=== PATIENT | male | born 2000 | race Caucasian/White ===

== ENCOUNTER 2021-07-19 13:45 | Emergency (ER) | payer OTHER ==
[~2021-07-19] VITALS: Ht 170.2 cm; Wt 68.0 kg
[2021-07-19 16:58] VITALS: BP 122/76
== END 2021-07-19 16:59 | disposition home or self-care (01) ==
LOC: ER 13:45
DX: U07.1 COVID-19 (principal)
CPT/HCPCS: 71045; 87426; 99284

== ENCOUNTER 2023-09-15 20:39 | Emergency (ER) | payer MEDICAID, OTHER ==
[~2023-09-15] VITALS: Ht 166.4 cm; Wt 71.4 kg
[2023-09-15 20:46] VITALS: TEMP 98.3; O2SAT 99
[2023-09-15 22:00] VITALS: BP 122/74; PULSE 81; RESP 16
[2023-09-15] MEDS: IBUPROFEN 400MG TABLET PO ONE (22:00)
[2023-09-15] MEDS ORDERED: IBUP-2028 MT (22:02)
== END 2023-09-16 01:24 | disposition home or self-care (01) ==
LOC: ER 20:39
DX: M54.9 Dorsalgia, unspecified (principal); M54.2 Cervicalgia; V49.49XA Driver injured in collision with other motor vehicles in traffic accident, initial encounter; Y93.89 Activity, other specified; Y92.89 Other specified places as the place of occurrence of the external cause; Y99.8 Other external cause status
CPT/HCPCS: 99282

== ENCOUNTER 2024-04-06 17:47 | Emergency (ER) | payer MEDICAID, OTHER ==
[~2024-04-06] VITALS: Ht 170.2 cm; Wt 70.0 kg
[~2024-04-06 17:47] MED LIST: IBUP-2028 MT
[2024-04-06 17:51] VITALS: O2SAT 98
[2024-04-06 18:17] LABS: BASOPHILS % 0.5 % (0.0-2.0); EOSINOPHILS % 2.1 % (0.0-5.0); HEMATOCRIT. 44.7 % (42.0-52.0); LYMPHOCYTES % 32.8 % (20.0-50.0); MEAN CORPUSCULAR HEMOGLOBIN 29.9 pg (28.0-32.0); MEAN CORPUSCULAR HGB CONC 33.6 g/dL (31.0-37.0); MEAN CORPUSCULAR VOLUME 88.8 fL (80.0-94.0); MEAN PLATELET VOLUME 8.4 fl (7.4-10.4); MONOCYTES % 5.9 % (2.0-8.0); NEUTROPHILS % 58.7 % (40.0-76.0); PLATELET 272 x1000/uL (130-400); RED BLOOD CELL COUNT 5.04 mill/uL (4.7-6.1); RED CELL DISTRIBUTION WIDTH 12.9 % (11.6-14.6); WHITE BLOOD COUNT 10.7 x1000/uL (4.5-11.0)
[2024-04-06 18:22] LABS: CHLORIDE 107 mEq/L (98-107); POTASSIUM 3.2 mEq/L (3.5-5.1); SODIUM 139 mEq/L (136-145)
[2024-04-06 18:23] LABS: CALCIUM 9.1 mg/dL (8.7-10.4); CARBON DIOXIDE 23 mEq/L (21-32)
[2024-04-06 18:28] LABS: GLUCOSE 134 mg/dL (70-105); PROTHROMBIN TIME 10.8 sec (9.6-11.0); UREA NITROGEN BLOOD 12 mg/dL (9-23)
[2024-04-06 18:30] LABS: ALANINE AMINOTRANSFERASE 32 IU/L (10-49); ALBUMIN 4.7 g/dL (3.2-4.8); ASPARTATE AMINOTRANSFERASE 40 IU/L (<34); BILIRUBIN TOTAL 0.3 mg/dL (0.1-1.0); PROTEIN TOTAL 7.8 g/dL (6.0-8.3)
[2024-04-06 18:36] LABS: BILIRUBIN DIRECT < 0.1 mg/dL (<=3.0)
[2024-04-06] MEDS: MORPHINE SULFATE 4 MG/ML INJ (FOR IV/IM USE) IV ONE (19:55)
[2024-04-06] MEDS: MORPHINE SULFATE 4 MG/ML INJ (FOR IV/IM USE) IV NR (19:56)
[2024-04-06] MEDS: IOHEXOL-300 100 ML BOTTLE ONE (23:11)
[2024-04-07] MEDS: SODIUM CHLORIDE 0.9% 1,000 ML IV ONE (00:15)
[2024-04-07 02:42] VITALS: BP 128/71; PULSE 95; RESP 20; TEMP 36.89184; O2SAT 98
[2024-04-07] MEDS: MORPHINE SULFATE 2 MG/ML INJ (NOT FOR IM USE) IV NR (02:57)
== END 2024-04-07 03:12 | disposition short-term general hospital (02) ==
LOC: ER 17:47
DX: S42.002A Fracture of unspecified part of left clavicle, initial encounter for closed fracture (principal); S22.009A Unspecified fracture of unspecified thoracic vertebra, initial encounter for closed fracture; G31.89 Other specified degenerative diseases of nervous system; V49.49XA Driver injured in collision with other motor vehicles in traffic accident, initial encounter; Y93.89 Activity, other specified; Y92.89 Other specified places as the place of occurrence of the external cause; Y99.8 Other external cause status
CPT/HCPCS: 80076; 80048; 85025; 85610; 86850; 86900; 86901; 36415; 71045; 73030; 70450; 71260; 72125; 74177; 96374; 99291; 96361; 96376; Q9967; J2270 ×2; Z7610 ×2